=== PATIENT | male | born 1990 | race African-American/Black ===

== ENCOUNTER 2024-01-20 04:18 | Emergency (ER) | payer OTHER ==
[~2024-01-20] VITALS: Ht 177.8 cm; Wt 106.8 kg
[2024-01-20 06:35] VITALS: BP 135/75; PULSE 89; RESP 18; TEMP 97.3; O2SAT 100
== END 2024-01-20 06:45 | disposition home or self-care (01) ==
LOC: EMS 04:18
DX: S46.001A Unspecified injury of muscle(s) and tendon(s) of the rotator cuff of right shoulder, initial encounter (principal); X58.XXXA Exposure to other specified factors, initial encounter; Y93.89 Activity, other specified; Y92.89 Other specified places as the place of occurrence of the external cause; Y99.0 Civilian activity done for income or pay
CPT/HCPCS: 99283